=== PATIENT | male | born 1955 | race Caucasian/White ===

== ENCOUNTER 2020-12-12 17:56 | Emergency (ER) | payer OTHER ==
[~2020-12-12] VITALS: Ht 198.1 cm; Wt 151.2 kg
[2020-12-12 18:11] VITALS: BP 145/83
--- NOTE | 2020-12-12 18:37 | NUR ---
ANGI JUST MOVED UP HERE, AND HAS ESTABLISHED CARE WITH A PMD: [facility], BUT HE HAS NOT SEEN MD YET HE IS HERE FOR A REFILL OF HIS ATORVASTATIN 40 MG ; 2 TABLETS AT NIGHT PATIENT HAS A REFILL COMING IN THE MAIL: IN ABOUT 5 DAYS
--- NOTE | 2020-12-12 18:39 | NUR ---
CORRECTION TAKES DAILY
[2020-12-12] MEDS ORDERED: ATOR40TA PO (18:49)
== END 2020-12-12 18:55 | disposition home or self-care (01) ==
LOC: ER 17:57
DX: E78.00 Pure hypercholesterolemia, unspecified (principal); Z76.0 Encounter for issue of repeat prescription; Z88.2 Allergy status to sulfonamides
CPT/HCPCS: 99281